=== PATIENT | male | born 1955 ===

== ENCOUNTER 2024-03-09 13:24 | Inpatient (IN) | payer MEDICARE, OTHER ==
[2024-03-09] MEDS ORDERED: hydrALAZINE 20 MG/ML VIAL SLOW IVP PRN (14:24)
[2024-03-09] MEDS ORDERED: Ipratropium/Albuterol 3 ML NEB NEB PRN (14:24)
[2024-03-09] MEDS: Sodium Chloride 0.9% 1,000 ML IV SCH (15:19)
[2024-03-09] MEDS: Ketorolac Tromethamine 30 MG (1 mL) VIAL IVP SCH (15:19)
[2024-03-09] MEDS: Acetaminophen 325 MG TAB PO SCH (15:20)
[2024-03-09] MEDS: Acetaminophen/Codeine 30-300mg Tablet PO PRN (15:20)
[2024-03-09 15:45] LABS: #Basophils 0.05 10x3/uL (0.0-0.2); %Basophils 0.3 % (0.0-1.0); %Eosinophils 0.7 % (0.0-10.0); %Lymphocytes 13.1 % (21.0-51.0); %Monocytes 8.2 % (0.0-10.0); %Neutrophils 77.2 % (42.0-75.0); Hemoglobin 14.4 g/dL (14.0-18.0); Mean Corpuscular HGB CONC 34.3 g/dL (32.0-36.0); Mean Corpuscular Hemoglobin 32.5 pg (27.0-31.0); Mean Corpuscular Volume 94.8 fL (78.0-98.0); Platelet Count 247 10x3/uL (130-400); RBC Distribution Width 13.9 % (11.5-14.5); Red Blood Cell (RBC) Count 4.43 mill/uL (4.70-6.10)
[2024-03-09 15:59] LABS: INR-International Normal Ratio 1.1; PTT 33.9 sec (22.9-36.1); Prothrombin Time 13.8 sec (12.0-14.7)
[2024-03-09 16:06] VITALS: BMI 28.3
[2024-03-09 16:09] LABS: ALT (SGPT) 11 U/L (8-55); AST (SGOT) 13 U/L (5-34); Albumin 3.7 g/dL (3.4-4.8); Alkaline Phosphatase 60 U/L (40-110); Anion Gap 13 mmol/L (10-20); BUN (Urea Nitrogen) 19 mg/dL (8.4-25.7); Bilirubin, Total 0.5 mg/dL (0.2-1.2); Calc. Creatinine Clearance 72 mL/min (70-130); Calcium 9.8 mg/dL (7.8-10.44); Carbon Dioxide 22 mmol/L (23-31); Chloride 107 mmol/L (98-107); Estimated GFR 74; Globulin 3.3 g/dL (2.4-3.5); Glucose 95 mg/dL (80-115); Sodium 138 mmol/L (136-145)
[2024-03-09] MEDS ORDERED: CEFAZOLIN 2 GM in Sodium Chloride 0.9% 100 ML IVPB SCH (17:00)
[2024-03-09] MEDS: Famotidine/PF 20 mg/2ml Vial SLOW IVP SCH (19:40)
[2024-03-09] MEDS: Senokot S 8.6-50 MG TAB PO SCH (19:40)
[2024-03-09] MEDS: Morphine 2 MG/ML VIAL SLOW IVP PRN (19:41)
[2024-03-09] MEDS: Ondansetron PF 4 MG/2 ML Vial IVP PRN (23:59)
[2024-03-10] MEDS: Ketorolac Tromethamine 30 MG (1 mL) VIAL IVP SCH (00:01)
[2024-03-10] MEDS: Morphine 4 MG/ML VIAL SLOW IVP PRN (04:27)
[2024-03-10] MEDS ORDERED: Tranexamic Acid 1,000 MG/10 ML VIAL ONE (08:18)
[2024-03-10] MEDS ORDERED: fentaNYL PF 100 MCG/2 ML SYRINGE ONE ×2 (08:18→10:02)
[2024-03-10] MEDS ORDERED: PROPOFOL 20 ML ONE (08:18)
[2024-03-10] MEDS ORDERED: Vancomycin 1 GM/200 ML (FROZEN) BAG ONE (08:19)
[2024-03-10] MEDS ORDERED: Dexamethasone 4 mg/ml Vial ONE (08:22)
[2024-03-10] MEDS ORDERED: Ondansetron PF 4 MG/2 ML Vial ONE ×2 (08:22→08:43)
[2024-03-10] MEDS ORDERED: Rocuronium Bromide 10 MG/ML (10ML VIAL) ONE ×2 (08:22→09:00)
[2024-03-10] MEDS ORDERED: Lidocaine 1% PF 5 ML VIAL ONE ×2 (08:22→09:00)
[2024-03-10] MEDS ORDERED: Sodium Chloride 0.9% 100 ML ONE ×2 (08:25→08:39)
[2024-03-10] MEDS ORDERED: CEFAZOLIN 2 GM VIAL ONE (08:39)
[2024-03-10] MEDS ORDERED: Famotidine/PF 20 mg/2ml Vial ONE (08:43)
[2024-03-10] MEDS ORDERED: PROPOFOL 200 MG/20 ML VIAL ONE (09:00)
[2024-03-10] MEDS ORDERED: PHENYLEPHRINE-NS 100 MCG/ML 10 ML SYRINGE ONE ×2 (09:00→10:40)
[2024-03-10] MEDS ORDERED: Glycopyrrolate 0.2 MG/ML 5 ML SYRINGE ONE ×2 (09:00→10:07)
[2024-03-10] MEDS: Polyethylene Glycol 3350 17 GM Packet PO SCH (09:50)
[2024-03-10] MEDS ORDERED: SUGAMMADEX SODIUM 200 MG/2 ML VIAL ONE (10:49)
[2024-03-10] MEDS ORDERED: fentaNYL 50 mcg/mL 1 mL Vial ONE ×2 (11:23→11:33)
[2024-03-10] MEDS ORDERED: HYDROmorphone 0.5 MG/0.5 ML SYRINGE ONE (11:51)
[2024-03-10] MEDS ORDERED: Ketorolac Tromethamine 30 MG (1 mL) VIAL ONE (12:03)
[2024-03-10] MEDS ORDERED: HYDROcodone/Acetaminophen 10/325 mg Tablet PO PRN ×2 (12:41)
[2024-03-10] MEDS ORDERED: Acetaminophen 325 MG TAB PO PRN (12:41)
[2024-03-10] MEDS ORDERED: Zolpidem Tartrate 5 MG TAB PO PRN (12:41)
[2024-03-10] MEDS ORDERED: traMADol HCl 50 MG TAB PO PRN ×2 (12:41)
[2024-03-10] MEDS ORDERED: diphenhydrAMINE 25 MG CAP PO PRN (12:41)
[2024-03-10 12:56] LABS: #Basophils 0.04 10x3/uL (0.0-0.2); %Basophils 0.3 % (0.0-1.0); %Eosinophils 0.5 % (0.0-10.0); %Lymphocytes 8.7 % (21.0-51.0); %Monocytes 3.2 % (0.0-10.0); Hematocrit 38.3 % (42.0-52.0); Hemoglobin 12.8 g/dL (14.0-18.0); Mean Corpuscular HGB CONC 33.4 g/dL (32.0-36.0); Mean Corpuscular Hemoglobin 31.8 pg (27.0-31.0); Mean Corpuscular Volume 95.3 fL (78.0-98.0); Mean Platelet Volume 10.5 fL (7.4-10.4); Platelet Count 218 10x3/uL (130-400); Red Blood Cell (RBC) Count 4.02 mill/uL (4.70-6.10)
[2024-03-10 13:37] LABS: Anion Gap 10 mmol/L (10-20); BUN (Urea Nitrogen) 23 mg/dL (8.4-25.7); Calc. Creatinine Clearance 70 mL/min (70-130); Carbon Dioxide 20 mmol/L (23-31); Chloride 110 mmol/L (98-107); Estimated GFR 73; Glucose 133 mg/dL (80-115); Potassium 4.5 mmol/L (3.5-5.1); Sodium 135 mmol/L (136-145)
[2024-03-10] MEDS: CEFAZOLIN 2 GM in Sodium Chloride 0.9% 100 ML IVPB SCH (15:51)
[2024-03-10] MEDS: Promethazine HCl 25 MG/ML VIAL IM PRN (16:35)
[2024-03-11 06:15] LABS: Hematocrit 31.6 % (42.0-52.0); Hemoglobin 10.6 g/dL (14.0-18.0); Mean Corpuscular HGB CONC 33.5 g/dL (32.0-36.0); Mean Corpuscular Hemoglobin 32.6 pg (27.0-31.0); Mean Corpuscular Volume 97.2 fL (78.0-98.0); Mean Platelet Volume 10.1 fL (7.4-10.4); Platelet Count 193 10x3/uL (130-400); RBC Distribution Width 14.1 % (11.5-14.5); Red Blood Cell (RBC) Count 3.25 mill/uL (4.70-6.10)
[2024-03-11 06:30] LABS: Anion Gap 9 mmol/L (10-20); BUN (Urea Nitrogen) 18 mg/dL (8.4-25.7); Calc. Creatinine Clearance 78 mL/min (70-130); Calcium 7.6 mg/dL (7.8-10.44); Carbon Dioxide 22 mmol/L (23-31); Chloride 112 mmol/L (98-107); Estimated GFR 82; Glucose 102 mg/dL (80-115); Potassium 3.9 mmol/L (3.5-5.1); Sodium 139 mmol/L (136-145)
[2024-03-11 06:32] LABS: ALT (SGPT) 9 U/L (8-55); AST (SGOT) 21 U/L (5-34); Albumin 2.8 g/dL (3.4-4.8); Alkaline Phosphatase 42 U/L (40-110); Bilirubin, Direct 0.1 mg/dL (0.1-0.3); Bilirubin, Total 0.4 mg/dL (0.2-1.2); Protein, Total 5.3 g/dL (5.8-8.1)
[2024-03-11] MEDS: Multivitamin W/ Minerals 1 TAB PO SCH (08:59)
[2024-03-11] MEDS: Ferrous Gluconate 324 MG TAB PO SCH (08:59)
[2024-03-11] MEDS ORDERED: Acetaminophen/Codeine 30-300mg Tablet PO PRN (09:13)
[2024-03-11] MEDS: Acetaminophen/Codeine 30-300mg Tablet PO PRN (12:25)
[2024-03-11] MEDS: Acetaminophen 325 MG TAB PO SCH (12:34)
[2024-03-11] MEDS: Apixaban 2.5 MG TAB PO SCH (20:48)
[2024-03-12] MEDS: Cyclobenzaprine 10 MG TAB PO PRN (20:29)
[2024-03-13 09:00] VITALS: BP 171/99; TEMP 98.3
== END 2024-03-13 11:23 | disposition home or self-care (01) | DRG 522 ==
LOC: SURG B 13:59
PROVIDERS: ADMIT Specialist; ATTEND Specialist
PROC: 0SRB03Z Replacement of Left Hip Joint with Ceramic Synthetic Substitute, Open Approach (ICD-10-PCS; principal; 2024-03-10)
DX: S72.002A Fracture of unspecified part of neck of left femur, initial encounter for closed fracture (principal); W18.30XA Fall on same level, unspecified, initial encounter; M19.90 Unspecified osteoarthritis, unspecified site; Z98.890 Other specified postprocedural states; Z79.01 Long term (current) use of anticoagulants; Z79.899 Other long term (current) drug therapy; Z88.5 Allergy status to narcotic agent
CPT/HCPCS: 36415; 71045; 72170; 80048; 80053; 80076; 85025; 85027; 85610; 85730; 86850; 86900; 86901; C1713; C1776; J1100; J1170; J1885; J2270; J2272; J2405; J2550; J2704; J3010; J3370-JW; J3490; J7050; S0028